=== PATIENT | female | born 1960 | race Caucasian/White ===

== ENCOUNTER 2019-04-27 11:10 | Emergency (ER) | payer OTHER ==
[~2019-04-27] VITALS: Ht 152.4 cm; Wt 59.0 kg
--- NOTE | 2019-04-27 11:25 | NUR ---
Pt w/c assisted to bed 6.
[2019-04-27 11:32] VITALS: BP 171/78
--- NOTE | 2019-04-27 11:35 | NUR ---
NOTIFIED DR. GARCIA OF PT COMPLAINT
--- NOTE | 2019-04-27 11:58 | NUR ---
BIB SO. PT. IS A 59 YEAR OLD FEMALE PRESENTING WITH RIGHT SIDED WEAKNESS THAT BEGAN IN THE MORNING OF 04/27/2019. SHE IS ALOX4 IS ABLE TO FOLLOW COMMANNDS. PUPILS RANDAL. 3MM. SHE IS STATES SHE IS UNABLE TO SMILE. UPON FURTHER ASSESMENT SHE GRINS, FROWNS IS ABLE TO SHOW TEETH. PT STATES THERE IS NO PAIN. THERE IS WEAKNESS AND NUMBNESS RADIATING FROM RIGHT SIDE OF HEAD TO SHOULDER AND WEAKNESS THROUGH ALL OF THE RIGHT SIDE. MUSCLE STRENGHT IS 4 ON RIGHT SIDE AND LEFT SIDE IS 5. ABLE TO LIFT BOTH ARMS AND BOTH LEGS. WITH LEFT ARM SHE IS ABLE TO TOUCH HER NOSE AND NURSES ARM WITH EASE, RIGHT SIDE SHE IS ABLE TO PERFORM BUT SLOWLY AND WITH MORE DIFFULTY. PT. STATES THIS HAS NOT HAPPENED BEFORE AND IT WAS SUDDEN PMHX:DIABETES, HYPERTENSION, ARTHRITIS, EPILEPSY RX:GABAPENTIN, PHENYTOIN, SULFASALAZINE, PREDNISONE, LEFLUNOMIDE, FOLIC ACID, CARVEDILOL, GLIPIZIDE
[2019-04-27] MEDS ORDERED: ENALAPRILAT 2.5 MG/2 ML VIAL IVP ONE (12:45)
[2019-04-27] MEDS ORDERED: GLIP5TER PO (12:47)
[2019-04-27] MEDS ORDERED: PRED5TAB7 PO (12:47)
[2019-04-27] MEDS ORDERED: FOLI1TAB90 PO (12:47)
[2019-04-27] MEDS ORDERED: VITD1000 PO (12:47)
[2019-04-27] MEDS ORDERED: GABA100C PO (12:47)
[2019-04-27] MEDS ORDERED: CARV6.25 PO (12:47)
[2019-04-27] MEDS ORDERED: PHEN100C3 PO (12:47)
[2019-04-27] MEDS ORDERED: SULF500T6 PO (12:47)
[2019-04-27] MEDS ORDERED: LEFL20TA18 PO (12:47)
--- NOTE | 2019-04-27 13:00 | NUR ---
Patient taken to CT scan via wheelchair by tech.
--- NOTE | 2019-04-27 13:01 | NUR ---
PT GOING TO CT AT THIS TIME
--- NOTE | 2019-04-27 13:13 | NUR ---
Patient returned from CT scan. RN re-evaluating patient at bedside.
[2019-04-27 14:02] LABS: ALBUMIN 3.4 g/dL (3.4-5.0); ANION GAP 15.1 (8-16); CARBON DIOXIDE 22.8 mmol/L (21-32); CREATININE 1.3 mg/dL (0.6-1.3); POTASSIUM 4.9 mmol/L (3.5-5.1); TOTAL BILIRUBIN 0.2 mg/dL (0.0-1.0)
[2019-04-27] MEDS ORDERED: INSULIN REGULAR, HUMAN 100 UNIT/ML VIAL IVP ONE (14:20)
[2019-04-27 15:10] VITALS: BP 141/71
--- NOTE | 2019-04-27 15:10 | NUR ---
Patient discharged with v/s stable by Dr. Sexton. Rx of Tylenol given to pt, benefits and side effects explained to pt and her family member.
== END 2019-04-27 15:00 | disposition home or self-care (01) ==
LOC: MED 11:10
DX: S43.401A Unspecified sprain of right shoulder joint, initial encounter (principal); I10 Essential (primary) hypertension; E11.9 Type 2 diabetes mellitus without complications; Z79.899 Other long term (current) drug therapy; X58.XXXA Exposure to other specified factors, initial encounter; Y93.89 Activity, other specified; Y92.89 Other specified places as the place of occurrence of the external cause; Y99.8 Other external cause status
CPT/HCPCS: 36415; 70450; 80053; 82948; 84484; 96374; 96375; 99284; J1815; J3490

== ENCOUNTER 2020-02-05 12:26 | Emergency (ER) | payer OTHER ==
[~2020-02-05] VITALS: Ht 152.4 cm; Wt 61.2 kg
[~2020-02-05 12:26] MED LIST: CARV6.25 PO; FOLI1TAB90 PO; GABA100C PO; GLIP5TER PO; LEFL20TA18 PO; PHEN100C3 PO; PRED5TAB7 PO; SULF500T6 PO; VITD1000 PO
[2020-02-05 13:30] VITALS: BP 148/74
--- NOTE | 2020-02-05 13:41 | NUR ---
60 Y/O F C/C EPIGASTRIC PAIN/VOMITTING X 1 DAY. PER PT 04/24 PAIN, TINGLING SENSATION, RADIATING TO THE UPPER CHEST AREA. PER PT CHRONIC PROBLEM BUT PAIN IS WORSE TODAY UANBLE TO CONTROL WITH CURRENT PRESCRIBED MEDICATION. PT IN DISTRESS DUE TO PAIN, A/OX4, AMHARIC SPEAKING, VSS, NO RESPIRATORY DISTRESS. NKA. HX GASTRITIS,DM. RX GLIPIZIDE,OMEPRAZOLE. SIDE RAIL X1. DENIES DIARREAH.
[2020-02-05] MEDS ORDERED: DICYCLOMINE HCL LIQUID 20 MG, ALUMINUM HYD/MAG/SIMETHICONE 30 ML, LIDOCAINE VISCOUS 2% ... PO ONE ×3 (14:15)
[2020-02-05] MEDS ORDERED: LIDOCAINE VISCOUS 2% 20 ML UDC ONE (14:36)
[2020-02-05] MEDS ORDERED: DICYCLOMINE HCL LIQUID 10 MG/5 ML UDC ONE (14:36)
[2020-02-05] MEDS ORDERED: ALUMINUM HYD/MAG/SIMETHICONE 30 ML UDC ONE (14:36)
--- NOTE | 2020-02-05 15:00 | NUR ---
PT RESTING IN BED, SIDE RAIL X1
[2020-02-05 15:02] LABS: BASOPHILS % (AUTO) 0.2 % (0.0-2.0); EOSINOPHILS % (AUTO) 0.3 % (0.0-4.0); HEMATOCRIT 32.3 % (36-48); HEMOGLOBIN 10.3 g/dL (12.0-16.0); LYMPHOCYTES # (AUTO) 1.2 K/uL (2.5-16.5); LYMPHOCYTES % (AUTO) 11.2 % (20.5-51.1); MEAN CORPUSCULAR HEMOGLOBIN 32 pg (27-31); MEAN CORPUSCULAR HGB CONC 32 g/dL (33-37); MEAN CORPUSCULAR VOLUME 100.1 fL (80-94); MONOCYTES # (AUTO) 0.5 K/uL (0.8-1.0); MONOCYTES % (AUTO) 5.1 % (1.7-9.3); NEUTROPHILS # (AUTO) 8.7 K/uL (1.8-7.7); NEUTROPHILS % (AUTO) 83.2 % (42.2-75.2); PLATELET COUNT (AUTO) 287 K/uL (140-450); RED BLOOD CELL COUNT(AUTO) 3.23 MIL/uL (4.20-5.40); RED CELL DISTRIBUTION WIDTH 14.3 % (11.6-13.7); WHITE BLOOD COUNT (AUTO) 10.5 K/uL (4.8-10.8)
[2020-02-05 15:16] LABS: ALBUMIN 3.4 g/dL (3.4-5.0); CARBON DIOXIDE 22.2 mmol/L (21-32); CREATININE 1.5 mg/dL (0.6-1.3); POTASSIUM 5.2 mmol/L (3.5-5.1); TOTAL BILIRUBIN 0.2 mg/dL (0.0-1.0)
[2020-02-05] MEDS ORDERED: ASPIRIN 325 MG TAB PO ONE (15:45)
--- NOTE | 2020-02-05 16:41 | NUR ---
PT RESTING IN BED, SIDE RAIL X1
--- NOTE | 2020-02-05 16:42 | NUR ---
PT CALM, VSS, EUPNIC, NO RESPIRATORY DISTRESS.
--- NOTE | 2020-02-05 17:09 | NUR ---
PT RESTING IN BED, SIDE RAIL X1
[2020-02-05] MEDS ORDERED: HEPARIN PER PHARMACY MC PRN (17:30)
[2020-02-05] MEDS ORDERED: hePARIN / DEXT 5% PREMIX 250 ML IV ONE ×3 (17:30→19:20)
--- NOTE | 2020-02-05 17:34 | NUR ---
PHARMACY NOTIFIED OF HEPARIN MEDICATION NEEDED FOR PT. PT TO BEGIN MAKING MEDICATION.
--- NOTE | 2020-02-05 17:52 | NUR ---
PER PHARMACY FAUSTINO PENDING PTT TO PRODUCE HEPARIN MEDICATION PHARMACY WILL CALL WHEN MEDICATION READY
[2020-02-05] MEDS ORDERED: OMEP20TC12 PO (18:01)
[2020-02-05 18:09] LABS: PROTHROMBIN TIME 10.7 secs (10.8-13.4)
--- NOTE | 2020-02-05 18:53 | NUR ---
PTT LAB VALUE VERIFIED BY PHARMACY ; PER PHARMACY TO LOOK AT [facility] UNDER 1815 HOURS ORDER OF HEPARIN DRIP PROTOCOL. FOLLOW PROTOCOL WHEN ADMINISTERING HEPARIN DRIP.
--- NOTE | 2020-02-05 19:16 | NUR ---
REPORT RECEIVED FROM BRIT BEY FOR CONTINUATION OF CARE.
--- NOTE | 2020-02-05 19:16 | NUR ---
REPORT GIVEN TO SABRA PEREA FOR CONTINUITY OF CARE
--- NOTE | 2020-02-05 20:00 | NUR ---
GAVE REPORT TO BRIT SHIN AT [facility] ON PT STATUS AND TRANSPORTATION ETA.
--- NOTE | 2020-02-05 20:00 | NUR ---
Note saloni in ED - 02/05/20 at 2127 by AREN PT RESTING IN BED, LOCKED AND IN LOWEST POSITION, HOB ELEVATED , SIDE RAIL X1 FOR PT SAFETY. RR EVEN AND UNLABORED, VISIBLE RISE AND FALL OF CHEST, NADR NOTED AT THIS TIME , VSS.
--- NOTE | 2020-02-05 20:00 | NUR ---
Patient to be transferred to [facility]. Is being transferred due to NSTEMI. Receiving facility has accepting physician and available space. ER physician has signed transfer form. Patient or responsible constitution party has agreed to transfer and signed form. Patient belongings inventoried and will be sent with patient. Copy of nursing notes, lab reports, EKG, Physicians Orders and X-rays to be sent with patient. Report called to BRIT Pinto at receiving facility. [facility] has been called for transfer. ETA is 2hr.
--- NOTE | 2020-02-05 20:06 | NUR ---
PT UNABLE TO SIGN TRANSFER PAPER. CALLED [facility] AND GAVE VERBAL CONSENT OVER THE PHONE TO TRANSFER PT TO [place]. TWO RN'S SIGNED PAPER FOR AUTHORIZATION.
--- NOTE | 2020-02-05 20:15 | NUR ---
PT RESTING IN BED, LOCKED AND IN LOWEST POSITION, HOB ELEVATED , SIDE RAIL X1 FOR PT SAFETY. RR EVEN AND UNLABORED, VISIBLE RISE AND FALL OF CHEST, NADR NOTED AT THIS TIME , VSS.
[2020-02-05 21:30] VITALS: BP 135/84
--- NOTE | 2020-02-05 21:30 | NUR ---
Patient transferred with v/s stable to [facility] . Patient belongings inventoried has been sent with patient. Copy of nursing notes, lab reports, EKG, Physicians Orders and X-rays has been sent with patient.Report given to BRIT Green for [facility] transportation.
== END 2020-02-05 21:30 | disposition short-term general hospital (02) ==
LOC: MED 12:26
DX: D64.9 Anemia, unspecified (principal); I21.A1 Myocardial infarction type 2; E87.6 Hypokalemia; E08.22 Diabetes mellitus due to underlying condition with diabetic chronic kidney disease; N18.9 Chronic kidney disease, unspecified; I10 Essential (primary) hypertension
CPT/HCPCS: 36415; 71045; 80053; 82948; 83690; 84484; 85025; 85610; 85730; 93005; 96365; 96366; 96375; 99291; J1644; Q0092

== ENCOUNTER 2022-06-09 14:31 | Emergency (ER) | payer OTHER ==
[~2022-06-09] VITALS: Ht 147.3 cm; Wt 68.0 kg
[~2022-06-09 14:31] MED LIST changes: -CARV6.25 PO; -FOLI1TAB90 PO; -GABA100C PO; -LEFL20TA18 PO; +OMEP-278 PO; -PHEN100C3 PO; -PRED5TAB7 PO; -SULF500T6 PO; -VITD1000 PO
[2022-06-09 14:46] VITALS: BP 120/54
[2022-06-09] MEDS ORDERED: MORPHINE SULFATE 2 MG/ML SYR IM STA (15:27)
[2022-06-09] MEDS ORDERED: FAMOTIDINE 20 MG TAB PO ONE (15:30)
[2022-06-09 15:54] LABS: BASOPHILS # (AUTO) 0.1 K/uL (0.00-0.22); BASOPHILS % (AUTO) 1.1 % (0.0-2.0); EOSINOPHILS # (AUTO) 0.2 K/uL (0-0.4); EOSINOPHILS % (AUTO) 4.3 % (0.0-4.0); HEMATOCRIT 29.8 % (36-48); LYMPHOCYTES # (AUTO) 2.2 K/uL (2.5-16.5); LYMPHOCYTES % (AUTO) 48.8 % (20.5-51.1); MEAN CORPUSCULAR HEMOGLOBIN 32 pg (27-31); MEAN CORPUSCULAR HGB CONC 34 g/dL (33-37); MEAN CORPUSCULAR VOLUME 94.7 fL (80-94); MONOCYTES # (AUTO) 0.4 K/uL (0.8-1.0); MONOCYTES % (AUTO) 8.7 % (1.7-9.3); NEUTROPHILS # (AUTO) 1.6 K/uL (1.8-7.7); NEUTROPHILS % (AUTO) 37.1 % (42.2-75.2); PLATELET COUNT (AUTO) 226 K/uL (140-450); RED BLOOD CELL COUNT(AUTO) 3.15 MIL/uL (4.20-5.40); RED CELL DISTRIBUTION WIDTH 14.8 % (11.6-13.7); WHITE BLOOD COUNT (AUTO) 4.4 K/uL (4.8-10.8)
[2022-06-09] MEDS ORDERED: DICYCLOMINE HCL LIQUID 20 MG, ALUMINUM HYD/MAG/SIMETHICONE 30 ML, LIDOCAINE VISCOUS 2% ... PO ONE ×3 (16:10)
[2022-06-09 16:12] LABS: ALBUMIN 2.9 g/dL (3.4-5.0); ANION GAP 12.1 (8-16); ASPARTATE AMINOTRANSFERASE 19 U/L (15-37); CARBON DIOXIDE 24.3 mmol/L (21-32); CHLORIDE 102 mmol/L (98-107); CREATININE 1.8 mg/dL (0.6-1.3); GFR ARICAN-AMERICAN 37 mL/min (>90); GLUCOSE 319 mg/dL (74-106); LIPASE 340 U/L (73-393); MAGNESIUM 2.2 mg/dL (1.8-2.4); POTASSIUM 5.4 mmol/L (3.5-5.1); SODIUM SERUM 133 mmol/L (136-145); TOTAL BILIRUBIN 0.1 mg/dL (0.0-1.0); UREA NITROGEN, BLOOD 33 mg/dL (7-18)
[2022-06-09] MEDS ORDERED: DICYCLOMINE HCL LIQUID 10 MG/5 ML UDC ONE (16:37)
[2022-06-09] MEDS ORDERED: ALUMINUM HYD/MAG/SIMETHICONE 30 ML UDC ONE (16:37)
[2022-06-09] MEDS ORDERED: NACL 0.9% 1,000 ML IV ONE (16:50)
[2022-06-09] MEDS ORDERED: TRAM50TA3 PO (18:03)
[2022-06-09] MEDS ORDERED: ACET-10509 PO (18:03)
[2022-06-09] MEDS ORDERED: FAMO-90 PO (18:03)
[2022-06-09 18:44] VITALS: BP 141/68
[2022-06-09 21:59] LABS: APPEARANCE,URINE CLEAR (CLEAR); BILIRUBIN,URINE NEGATIVE (NEGATIVE); BLOOD, URINE NEGATIVE (NEGATIVE); COLOR,URINE STRAW (YELLOW); LEUKOCYTE ESTERASE ,URINE NEGATIVE (NEGATIVE); NITRITE, URINE NEGATIVE (NEGATIVE); UGLUCOSE NEGATIVE (NEGATIVE)
[2022-06-10] MEDS ORDERED: TRAM50TA3 PO (14:16)
[2022-06-10] MEDS ORDERED: ACET-10509 PO (14:16)
[2022-06-10] MEDS ORDERED: FAMO-92 PO (14:16)
== END 2022-06-09 18:44 | disposition home or self-care (01) ==
LOC: MED 14:31
DX: K29.70 Gastritis, unspecified, without bleeding (principal); M79.605 Pain in left leg; E11.9 Type 2 diabetes mellitus without complications; K21.9 Gastro-esophageal reflux disease without esophagitis; I10 Essential (primary) hypertension; M19.90 Unspecified osteoarthritis, unspecified site; Z79.899 Other long term (current) drug therapy; Z79.891 Long term (current) use of opiate analgesic
CPT/HCPCS: 36415; 74176; 80053; 81003; 83690; 83735; 84484; 85025; 93005; 96360; 96361; 96372; 99285; J2270; J7030